=== PATIENT | female | born 1970 | race Caucasian/White ===

== ENCOUNTER 2022-06-27 10:22 | Emergency (ER) | payer MEDICAID, OTHER ==
[~2022-06-27] VITALS: Ht 160 cm; Wt 77.0 kg
[2022-06-27 11:01] VITALS: BP 124/73
[2022-06-27] MEDS ORDERED: BENZ150C3 MT (13:45)
[2022-06-27] MEDS ORDERED: TOPUD MT (13:45)
[2022-06-27] MEDS ORDERED: CETI10CA11 MT (13:49)
[2022-06-27] MEDS ORDERED: FLUT9.9S BOTHNSTRLS (13:49)
== END 2022-06-27 14:17 | disposition home or self-care (01) ==
LOC: ER 11:37
DX: T78.49XA Other allergy, initial encounter (principal); J06.9 Acute upper respiratory infection, unspecified; J32.9 Chronic sinusitis, unspecified; Z20.822 Contact with and (suspected) exposure to COVID-19; Z86.16 Personal history of COVID-19; X58.XXXA Exposure to other specified factors, initial encounter
CPT/HCPCS: 71045; 81025; 87426; 87804; 99284; C9803